=== PATIENT | female | born 1955 | race Caucasian/White ===

== ENCOUNTER 2019-10-04 09:12 | Inpatient (IN) | payer OTHER ==
[2019-09-25 12:52] LABS: HEMATOCRIT 44.9 % (37.0-47.0); HEMOGLOBIN 14.7 gm/dL (12.0-15.0); MCH 27.6 pg (26.0-34.0); MCHC 32.7 g/dL (28.0-37.0); MCV 84.5 fL (80.0-100.0); RBC 5.31 mil/uL (4.20-5.00); RDW 14.1 % (10.5-14.5)
[2019-09-25 12:58] LABS: ALBUMIN 4.6 g/dL (3.4-5.0); CALCIUM 9.8 mg/dL (8.5-10.1); CREATININE 1.2 mg/dL (0.6-1.0); POTASSIUM 3.5 mmol/L (3.5-5.1)
[2019-09-25 13:06] LABS: PROTIME 9.7 Seconds (9.3-11.4)
[2019-09-25 13:10] LABS: URINE BILIRUBIN NEGATIVE (Negative); URINE BLOOD NEGATIVE (Negative); URINE CLARITY CLEAR; URINE COLOR YELLOW; URINE GLUCOSE-RANDOM* NEGATIVE (Negative); URINE KETONES NEGATIVE (Negative); URINE LEUKOCYTES-REFLEX NEGATIVE (Negative); URINE NITRITE-REFLEX NEGATIVE (Negative); URINE PROTEIN (DIPSTICK) NEGATIVE (Negative); URINE SPECIFIC GRAVITY <= 1.005 (1.005-1.035); URINE UROBILINOGEN 0.2 E.U./dl (0.2-1.0)
--- NOTE | 2019-09-25 15:22 | EKG ---
[address] [address] ELECTROCARDIOGRAM REPORT Name: DEIDRA TYLER Room #: [facility]#: [id number] Admission: Attend Phys: Bryan Dunbar MD Discharge: Date of : 51 Report #: [id number] THIS REPORT FOR: //name// [facility] Test Date: 2019-09-25 Test Time: 12:46:48 Pat Name: DEIDRA TYLER Department: Room: Gender: F Tobacco Feeder Catcher: RUSLAN TORRES : 1955 Requested By: Bryan Dunbar Order Number: [id number] MD: Abimael Roy Measurements Intervals [place] Rate: 91 P: 68 IA: 154 QRS: 3 QRSD: 92 T: 15 QT: 362 QTc: 446 Interpretive Statements Sinus rhythm No previous ECG available for comparison Electronically Signed On 09-25-2019 15:22:07 [employer] CONSULTANT by Abimael Roy [email or web address] <ELECTRONICALLY SIGNED> By: Abimael Roy MD 09/25/19 1522 1246 1246 Abimael Roy MD /KRISTIAN
[~2019-10-04] VITALS: Ht 167.6 cm; Wt 88.9 kg
--- NOTE | ~2019-10-04 | O ---
[facility] [place] [address] OPERATIVE REPORT Name: DEIDRA TYLER Room #: 150-6 ADM IN M.R.#: [id number] Admission: 10/04/19 Attend Phys: Bryan Dunbar MD Discharge: Date of : 51 Report #: [id number] THIS REPORT FOR: //name// CC: Golden Dunbar DATE OF SERVICE: 10/04/2019 PREOPERATIVE DIAGNOSIS: Left knee osteoarthritis. POSTOPERATIVE DIAGNOSIS: Left knee osteoarthritis. PROCEDURE: Left total knee arthroplasty using Navio robotic assistance. SURGEON: Bryan Dunbar MD. HOSE CEMENTER: Bobbi Perkins PA-C. INDICATIONS FOR HOSE CEMENTER: Throughout the case, extensive retraction and manipulation of the knee was required. This was afforded to me by my general office assistant. ANESTHESIA: LMA with an adductor canal block. IMPLANTS: Gross and Nephew size 6 narrow cobalt chrome Legion posterior stabilized femur, a size 4 tibia, size 11 polyethylene and size 35 patella. TOURNIQUET TIME: 55 minutes. ESTIMATED BLOOD LOSS: 25 mL. COMPLICATIONS: None. SPECIMENS: None. CONDITION UPON LEAVING THE OPERATING ROOM: Stable. INDICATIONS FOR PROCEDURE: The patient is a 64-year-old female with left knee osteoarthritis. She had failed conservative measures for this and after discussion with her, she elected for left unicompartmental knee arthroplasty versus total knee arthroplasty. DESCRIPTION OF PROCEDURE: Risks, benefits, alternatives, complications were discussed in detail with the patient including but not limited to risk of anesthesia, risk of damage to nerves, arteries, blood vessels, risk for infection, bleeding, risk for continued knee pain, need for reoperation. [facility] [address] [place] [address] OPERATIVE REPORT Name: DEIDRA TYLER Room #: 150-6 [facility] [place] IN ..#: [id number] Admission: 10/04/19 Attend Phys: Bryan Dunbar MD Discharge: Date of : 51 Report #: [id number] Informed consent was obtained from the patient. Left knee was appropriately marked in the preoperative holding area. IV Ancef was given for preoperative antibiotics. Adductor canal block was placed by Anesthesia. She was brought to the operating room and placed in supine position on operating room table. LMA anesthesia was induced without complication. Tourniquet was placed on the left thigh. Left lower extremity was prepped and draped in normal sterile fashion. Timeout was performed properly identifying the patient and procedure as well as the instrumentation and implants. All in the operating room were in agreement. Left lower extremity was exsanguinated, tourniquet was inflated. Tourniquet time was 55 minutes. Standard midline approach to knee was made with 10 blade through the skin. Dissection was taken down sharply to the fascia and deep flaps were developed medially and laterally. Fresh 10 blade was used to make a medial parapatellar arthrotomy and the knee was inspected. There was severe medial compartment osteoarthritis. There was abykcfrv-nh-jqzhgn patellofemoral osteoarthritis. It was decided to proceed with total knee arthroplasty. ACL and PCL were removed sharply. Reference pins were placed in the femur and the tibia. The knee was then digitally mapped using the [employer] robotic system. Intraoperative plan was made and we sized the size 6 femur with a size 4 tibia, size 11 spacer. After acceptance of the intraoperative plan, the distal femoral cut was made with a Navio joyce. The 4-in-1 cutting block was placed. Anterior, posterior and chamfer cuts were made on the femur. Attention was then turned to the tibia. Tibial resection guide was pinned in place using the Navio for placement and tibial resection was made. Medial osteophytes were removed from the tibia. The flexion and extension gaps were then checked and found to have good balance medially and laterally in flexion and extension. After this, tibia was sized, found to be a size 4. Size 4 tibial trial was placed, pinned and punched. Size 6 femoral trial was placed and the box cut was made. This was then trialed with a size 11 polyethylene. Knee was taken through range of motion, found to be stable, found to have a millimeter of laxity medial and lateral throughout range of motion. A 9 mm was then resected from the posterior surface of the patella and a size 35 patellar trial button was placed. Knee was taken through range of motion, found to have good patellar tracking. After this, trial components were removed. Bony ends were thoroughly irrigated with normal saline. Final size 4 tibia, size 6 narrow Legion cobalt chrome posterior stabilized femur and a size 35 patella were cemented in place using standard cementation techniques. While the cement cured, a periarticular injection consisting of morphine, ropivacaine, epinephrine and Toradol was placed around the knee joint capsule. After the cement cured, tourniquet was deflated. Hemostasis was obtained with Bovie cautery. Final size 11 polyethylene was placed. A gram of vancomycin was placed deep in the joint. The fascia was closed with 0 Vicryl, skin was closed with 2-0 Vicryl, 3-0 Monocryl. [facility] [address] [address] OPERATIVE REPORT Name: DEIDRA TYLER Room #: 150-6 [facility] [place] IN M.R.#: [id number] Admission: 10/04/19 Attend Phys: Bryan Dunbar MD Discharge: Date of : 51 Report #: [id number] and a OLGA dressing was applied. The patient tolerated this procedure well and went to recovery room under care of anesthesia postoperatively. By: 1634 [id number] Bryan Dunbar MD /nt
[~2019-10-04 09:12] MED LIST: ASPIR-LOW81 MG PO; AVAPRO 150 MG150 MG PO; HYDROCHLOROTHIA25 M2 PO; LIPITOR40 MG PO; WELLBUTRIN SR150 M1 PO
[2019-10-04 13:04] VITALS: BP 160/66
[2019-10-04 19:12] VITALS: BP 139/84
--- NOTE | 2019-10-04 19:56 | NUR ---
PATIENT ARRIVED ON UNIT TO ROOM 437 ACCOMPANIED BY AND SISTER AND DINH. V.S 97.6 18 145/91 76 O2 SAT 98% 2L/NC. ASSESSMENT DONE IN COMPUTER NOC SHIFT TO FINISH. 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 KNEE HIGH CHARISMA HOSE AND SCDS. PT W/O PAIN GIVEN SPRITE. CLOTH BLEACHING RANGE TENDER TO GET ZOFRAN.
--- NOTE | 2019-10-05 03:14 | NUR ---
ASSUMED CARE OF PT @1900 PT ASSESSED AT START OF SHIFT A&OX4 WITH C/O NAUSEA CALLED PHARMACY AND MEDS ORDERED AND GIVEN. ADMISSION COMPLETED. OLGA DRESSING, POLAR PACK AND SCD'S IN PLACE. BILL AT BEDSIDE FOR THE NIGHT. FALL PREC IN PLACE AND CALL LIGHT WITHIN REACH WILL CONT WITH POC TILL EOS.
[2019-10-05 04:06] VITALS: BP 126/70
[2019-10-05 05:28] LABS: HEMATOCRIT 37.8 % (37.0-47.0); HEMOGLOBIN 12.2 gm/dL (12.0-15.0); MCH 27.6 pg (26.0-34.0); MCHC 32.3 g/dL (28.0-37.0); MCV 85.4 fL (80.0-100.0); RBC 4.43 mil/uL (4.20-5.00); WBC 14.1 thou/uL (4.0-11.0)
[2019-10-05 07:52] VITALS: BP 109/63
--- NOTE | 2019-10-05 12:41 | NUR ---
PT A&OX4. IV INFUSING FLUIDS W/O COMPS IN L AC. AMBULATES WITH STAND BY ASSIST AND WALKER. UP WITH PT/OT THIS AM. SITTING IN CHAIR AT THIS TIME. CALL LIGHT W/I REACH. WILL CONT POC.
--- NOTE | 2019-10-05 14:06 | NUR ---
INITIAL ASSESSMENT: Pt evaluated for d/c planning needs. Reviewed chart and spoke with PT, nurse, pt and spouse. Pt is alert and oriented. Pt lives in house with spouse and was independent with ADL's prior to admission to the hospital. 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 Pt has walker and cane at home. Pt has outpatient physical therapy arranged. Pt plans on returning home on d/c from hospital. Will remain available to assist as needed.
[2019-10-05] MEDS ORDERED: ASPIR-LOW81 MG PO (14:08)
[2019-10-05] MEDS ORDERED: NEURONTIN 300300 M1 PO (14:08)
[2019-10-05 19:30] VITALS: BP 106/55
[2019-10-06 04:00] VITALS: BP 111/52
--- NOTE | 2019-10-06 04:42 | NUR ---
PT CARE ASSUMED AT 1900 WITH PT IN BED.PT IS A/O X4 .PT IS UP TO BATHROOM WITH SBA.PT PAIN MGT WITH HYDROCODONE WITH PARTIAL RELIEF.PT IS FOR D/C TODAY AFTER PT/OT MORNING SESSION.WILL CONTINUE TO MONITOR TILL EOS
[2019-10-06 05:29] LABS: HEMOGLOBIN 11.4 gm/dL (12.0-15.0); MCH 27.8 pg (26.0-34.0); MCHC 32.6 g/dL (28.0-37.0); MCV 85.3 fL (80.0-100.0); RBC 4.11 mil/uL (4.20-5.00); RDW 14.4 % (10.5-14.5); WBC 10.4 thou/uL (4.0-11.0)
[2019-10-06 07:45] VITALS: BP 132/66
--- NOTE | 2019-10-06 13:36 | NUR ---
pt care assumed at 0700. a&oX4. PT WAS IN A LOT OF PAIN. PAIN MEDICATION GIVEN IN REGULAR SPACING AND PAIN UNDER CONTROL AGAIN. PT EVALUATED AND CLEARED FOR DISCHARGE. IV REMOVED WITH NO REDNESS OR SWELLING. DISCHARGE EDUCATION GIVEN TO PATIENT AND . SCRIPTS SENT WITH PATIENT. KENIA EXPLAINED. OLGA DRESSING INTACT.
[2019-10-06 13:49] VITALS: BP 132/66
== END 2019-10-06 14:44 | disposition home or self-care (01) | DRG 470 ==
LOC: PRE 09:12 → 4S 11:54 → TBA 11:54 → PRE 12:14 → 4S 18:16 → ENTRNSPT 10-06 14:22 → EDTRNSPTSTS 10-06 14:43 → 4S 10-06 14:44
PROVIDERS: ADMIT Orthopaedic Surgery
PROC: 8E0Y0CZ Robotic Assisted Procedure of Lower Extremity, Open Approach (ICD-10-PCS; principal; 2019-10-04)
PROC: 0SRD069 Replacement of Left Knee Joint with Oxidized Zirconium on Polyethylene Synthetic Substitute, Cemented, Open Approach (ICD-10-PCS; principal; 2019-10-04)
DX: M17.12 Unilateral primary osteoarthritis, left knee (principal); E78.00 Pure hypercholesterolemia, unspecified; F41.9 Anxiety disorder, unspecified; Z79.82 Long term (current) use of aspirin; Z79.899 Other long term (current) drug therapy; Z88.2 Allergy status to sulfonamides; Z88.8 Allergy status to other drugs, medicaments and biological substances
CPT/HCPCS: 10102; 50010; 50101; 50415; 50954; 51130; 51225; 51320; 52001; 52282; 53000; 53078; 53364; 54118; 56527; 56528; 57095; 57103; 57110; 57127; 62110; 62900; 64039; 70005

== ENCOUNTER → 2021-08-28 | Outpatient (CLI) | payer OTHER ==
[~2021-08-28] MED LIST changes: +ASPIRIN EC81 M1 PO; +NEURONTIN 300300 M1 PO
[2021-08-28 10:49] LABS: HEMATOCRIT 43.2 % (37.0-47.0); HEMOGLOBIN 14.4 gm/dL (12.0-15.0); MCH 28.1 pg (26.0-34.0); MCHC 33.3 g/dL (28.0-37.0); MCV 84.5 fL (80.0-100.0); RBC 5.11 mil/uL (4.20-5.00); WBC 7.8 thou/uL (4.0-11.0)
[2021-08-28 10:53] LABS: URINE BILIRUBIN NEGATIVE (Negative); URINE BLOOD NEGATIVE (Negative); URINE CLARITY CLEAR; URINE COLOR YELLOW; URINE GLUCOSE-RANDOM* NEGATIVE (Negative); URINE KETONES NEGATIVE (Negative); URINE LEUKOCYTES-REFLEX NEGATIVE (Negative); URINE NITRITE-REFLEX NEGATIVE (Negative); URINE PROTEIN (DIPSTICK) NEGATIVE (Negative); URINE UROBILINOGEN 0.2 E.U./dl (0.2-1.0)
[2021-08-28 10:54] LABS: ALBUMIN 4.4 g/dL (3.4-5.0); CALCIUM 9.1 mg/dL (8.5-10.1); CREATININE 1.3 mg/dL (0.6-1.0); POTASSIUM 3.8 mmol/L (3.5-5.1)
[2021-08-28 10:58] LABS: INR 0.94; PROTIME 10.3 Seconds (10.5-12.1)
--- NOTE | 2021-08-29 07:11 | EKG ---
[address] [address] ELECTROCARDIOGRAM REPORT Name: DEIDRA TYLER Room #: [facility]#: [id number] Admission: 08/28/21 Attend Phys: Bryan Dunbar MD Discharge: Date of : 51 Report #: [id number] [facility] Test Date: 2021-08-28 Test Time: 10:46:19 Pat Name: DEIDRA TYLER Department: Room: Gender: F Straw Hat Brusher: RUSLAN TORRES : 1955 Requested By: Bryan Dunbar Order Number: [id number] : Felipe Amador Measurements Intervals [place] Rate: 86 P: 67 IN: 161 QRS: 6 QRSD: 97 T: 15 QT: 363 QTc: 434 Interpretive Statements Sinus rhythm Compared to ECG 09/25/2019 12:46:48 No significant changes Electronically Signed On 08-29-2021 7:11:48 RELAY ADJUSTER by Felipe Amador [email or web address] <ELECTRONICALLY SIGNED> By: Felipe Amador MD, [facility] 08/29/21 0711 1046 1046 Felipe Amador MD, FACC /EPI
== END ==
LOC: PAC 08:11
PROVIDERS: ATTEND Orthopaedic Surgery
DX: M17.11 Unilateral primary osteoarthritis, right knee (principal)

== ENCOUNTER 2021-09-02 07:39 | Observation (INO) | payer OTHER ==
[~2021-09-02] VITALS: Ht 167.6 cm; Wt 88.9 kg
[2021-09-02 09:05] VITALS: BP 163/79
[2021-09-02 16:15] VITALS: BP 136/70
[2021-09-02 19:29] VITALS: BP 122/60
[2021-09-03 07:39] VITALS: BP 97/61
[2021-09-03 11:32] VITALS: BP 97/61
--- NOTE | 2021-09-04 10:49 | O ---
[facility] [place] [address] OPERATIVE REPORT Name: DEIDRA TYLER Room #: 447-P [facility] Zaina Serna#: [id number] Admission: 09/02/21 Attend Phys: Bryan Dunbar MD Discharge: 09/03/21 Date of : 51 Report #: [id number] THIS REPORT FOR: cc: Mary Tejada MD, Catherine A. MD Abraham,Bryan Arreaga MD ~ DATE OF SERVICE: 09/02/2021 PREOPERATIVE DIAGNOSIS: Right knee osteoarthritis. POSTOPERATIVE DIAGNOSIS: Right knee osteoarthritis. PROCEDURE: Right total knee arthroplasty using Navio robotic assistance. SURGEON: Bryan Dunbar MD INTERSTATE BUS DRIVER: Bobbi Perkins PA-C. INDICATION FOR INTERSTATE BUS DRIVER: Throughout the case, extensive retraction, manipulation of the knee was required. This was afforded to me by my medical assistant float. ANESTHESIA: LMA with an adductor canal block. IMPLANTS: Gross and Nephew size 6 Journey II BCS cobalt chrome femur, size 4 tibia, size 32 patella and a 9 polyethylene. TOURNIQUET TIME: 50 minutes. ESTIMATED BLOOD LOSS: 25 mL. COMPLICATIONS: None. SPECIMENS: None. CONDITION UPON LEAVING THE OR: Stable. INDICATIONS FOR PROCEDURE: The patient is a 66-year-old female with right knee osteoarthritis. She had failed conservative measures for this and after discussion with her, she elected for right total knee arthroplasty. DESCRIPTION OF PROCEDURE: Risks, benefits, alternatives, complications were discussed in detail with the patient including but not limited to risk of anesthesia, risk of damage to nerves, arteries, blood vessels, risk for infection, bleeding, risk for continued knee pain and need for reoperation. Informed consent was obtained from the patient. Right knee was appropriately marked in the preoperative holding area. IV Ancef was given for preoperative [address] [address] OPERATIVE REPORT Name: DEIDRA TYLER Room #: 447-P ANGELA Serna#: [id number] Admission: 09/02/21 Attend Phys: Bryan Dunbar MD Discharge: 09/03/21 Date of : 51 Report #: [id number] antibiotics. She was brought to the operating room and placed in the supine position on the operating room table. LMA anesthesia was induced without complication. Tourniquet was placed on the right thigh. Right lower extremity was prepped and draped in normal sterile fashion. Timeout was performed properly identifying the patient and procedure as well as the instrumentation and implants. All in the operating room in agreement. Right lower extremity was exsanguinated and tourniquet inflated. Tourniquet time was 50 minutes. Standard midline approach to the knee was made with 10 blade through the skin. Dissection was taken down sharply to the fascia. Deep flaps were developed medially and laterally. Fresh 10 blade was used to make a medial parapatellar arthrotomy and the knee was inspected. There was moderate to severe tricompartmental osteoarthritis. ACL and PCL were removed sharply. Reference pins were placed in the femur and the tibia. The knee was digitally mapped using the [employer] robotic system. Intraoperative plan was made. We sized to size 6 femur, the size 4 tibia and a 10 spacer. After acceptance of the intraoperative plan, the distal femoral cut was made with Navio bur. Distal femoral cutting block was pinned in place and chamfer cuts were made. Attention was turned to the tibia. Remainder of the menisci removed with Bovie cautery. Tibial resection guide was pinned in place using Navio for placement and tibial resection was made. Flexion and extension gaps were checked and found to have good balance in flexion and extension both medially and laterally. Tibia sized, found to be a size 4. Size 4 tibial trial was placed, pinned and punched. A size 6 femoral trial was placed and box cut was made. This was then trialed with a size 9 polyethylene. Knee was taken through range of motion, found to be stable, found to have good balance both medially and laterally, digitally as well as manually. A 9 mm of bone was resected from the posterior surface of the patella and a size 32 patellar trial button was placed. Knee was taken through range of motion, found to be stable, found to have good patellar tracking. Trial components were removed. Bone ends were thoroughly irrigated with normal saline. Final size 4 tibia, size 6 Journey II BCS cobalt chrome femur and a size 32 patella were cemented in place using standard cementation techniques. While the cement cured, a periarticular injection consisting of morphine, ropivacaine, epinephrine, Toradol was placed around the knee joint capsule. After the cement cured, tourniquet was deflated. Hemostasis was obtained with Bovie cautery. A final size 9 polyethylene was placed. A gram of vancomycin was placed deep in the joint. The fascia was closed with 0 Vicryl. Skin was closed with 2-0 Vicryl, 3-0 Monocryl, Dermabond and a OLGA dressing was applied. The patient tolerated this procedure well and went to recovery room under care of anesthesia postoperatively. <ELECTRONICALLY SIGNED> By: Bryan Dunbar MD 09/04/21 1049 1142 1153 Bryan Dunbar MD /nt
== END 2021-09-03 13:33 | disposition home or self-care (01) ==
LOC: OR 07:39 → 4S 12:03 → PRE 13:50 → OR 14:39 → EDSTATUS 15:42 → 4S 09-03 13:33
PROVIDERS: ADMIT Orthopaedic Surgery; ATTEND Orthopaedic Surgery
DX: M17.11 Unilateral primary osteoarthritis, right knee (principal); Z20.822 Contact with and (suspected) exposure to COVID-19; M17.12 Unilateral primary osteoarthritis, left knee; I10 Essential (primary) hypertension; E78.00 Pure hypercholesterolemia, unspecified; F41.9 Anxiety disorder, unspecified; Z79.899 Other long term (current) drug therapy
CPT/HCPCS: 50010; 50101; 50415; 50954; 51130; 51225; 51320; 52001; 53000; 53078; 54118; 56527; 56528; 57095; 57103; 57110; 57127; 57180; 58239; 62110; 62900; 64042; 70005